=== PATIENT | female | born 1955 | race Caucasian/White ===

== ENCOUNTER 2023-09-04 06:33 | Observation (INO) ==
--- NOTE | 2023-08-08 12:21 | PAT Medication Instructions ---
Medication Instructions Date of Service August 08, 2023 Home Medications Medication Instructions Recorded amoxicillin 500 mg tablet 2,000 mg (4 x 500 mg) PO ONCE #4 06/29/20 tabs multivitamin 1 cap PO QAM amoxicillin 500 mg tablet 2,000 mg (4 x 500 mg) PO ONCE amlodipine 5 mg tablet 5 mg PO BID bupropion HCl 150 mg 24 hr tablet, extended release 150 mg PO BID naltrexone 50 mg tablet 25 mg PO BID naproxen 500 mg tablet 500 mg PO BID PRN Continue as directed amoxicillin 500 mg tablet 2,000 mg (4 x 500 mg) PO ONCE ASK your surgeon for instructions naproxen 500 mg tablet 500 mg PO BID PRN DO NOT take the morning of surgery multivitamin 1 cap PO QAM naltrexone 50 mg tablet 25 mg PO BID Take morning of surgery With a small sip of water, OTHERWISE NOTHING TO EAT OR DRINK AFTER MIDNIGHT: amlodipine 5 mg tablet 5 mg PO BID bupropion HCl 150 mg 24 hr tablet, extended release 150 mg PO BID Take evening before surgery amlodipine 5 mg tablet 5 mg PO BID bupropion HCl 150 mg 24 hr tablet, extended release 150 mg PO BID naltrexone 50 mg tablet 25 mg PO BID Other Notes If you have any questions please call us at [phone] or [phone] or [phone] or [phone]
--- NOTE | 2023-08-14 10:37 | Anesthesiology Consultation ---
Date of Service August 14, 2023 Assessment & Plan (1) Encounter for pre-operative examination: - Infectious disease screening: Per assessment on 08/14/23: No known infectious disease contacts or current infectious disease symptoms. No noted recent Covid positive test result. - Outpatient joint assessment: Pt currently scheduled for inpatient pathway. If surgeon requests review for outpatient joint pathway, patient is an acceptable candidate for outpatient joint program from anesthesia standpoint pending surgeon's office assessment that patient is motivated, has good support and completes [facility] preop requirements. 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 Prior to Right FABIÁN (done 05/2018 at [facility]) discussion by anesthesia with patient regarding SAB vs. GA. DOS preop platelet count at that time was 106 > Decision for SAB. Right FABIÁN (06/10/18): SAB at L3/4 at [facility]. No issues noted per post-op anesthesia progress note. S heme/onc aware of upcoming surgery and recommended preop CBCD with determination of anything further preop based on that finding. Preop CBCD done 08/14/23 with PAT preop labs (platelets 137 WNL)- results forwarded to S heme/onc. Awaiting [facility] heme/onc (Dr. Marte) preop recommendations ([facility] communication note started). Patient otherwise acceptable risk for surgery. Chart Review Chart Review: Patient seen in Pre Admission Testing Teaching & Discussion Pre-Anesthesia Teaching/Discussion Notes: Instructed NPO after midnight before surgery,except medications with 15 cc of water. Medication instructions provided according to the PAT guidelines. History Surgery Operation Date: 09/04/23 10:40 Proposed Procedures p Left Total Hip Arthroplasty - Gabe Bacon MD Height/Weight Height: 5 ft 8 in Weight: 87.4 kg Allergies Allergy/AdvReac Type Severity Reaction Status Date / Time Sulfa (Sulfonamide Allergy Mild Rash Verified 08/14/23 08:47 Antibiotics) codeine Allergy GI symptoms Verified 08/14/23 08:47 Medications Home Medications Medication Instructions Recorded Confirmed Last Taken multivitamin 1 cap PO QAM 05/22/18 08/08/23 06/09/18 06:00 amoxicillin 500 mg tablet 2,000 mg (4 x 500 mg) PO ONCE #4 06/29/20 08/08/23 Unknown tabs amlodipine 5 mg tablet 5 mg PO BID 08/08/23 08/08/23 Unknown bupropion HCl 150 mg 24 hr tablet, 150 mg PO BID 08/08/23 08/08/23 Unknown extended release naltrexone 50 mg tablet 25 mg PO BID 08/08/23 08/08/23 Unknown naproxen 500 mg tablet 500 mg PO BID PRN Pain 08/08/23 08/08/23 Unknown Additional Notes: Per patient, they were consideration initiation of Wegovy in near future. She was advised that Wegovy cannot be taken/needs to be stopped 7 days prior to surgery d/t anesthesia interaction/complications. She voiced understanding and states she will not be starting Wegovy until after upcoming surgery Past Medical History Medical History Hemidiaphragm paralysis right History of COVID-2020 Osteoarthritis Thrombocytopenia [facility]- suspected ITP, chronic thrombocytopenia since 2011 Exercise / Class Metabolic Activity II 4-5 Yardwork/Stairs/Walk up hill (one FS (no CP, no SOB)) Past Surgical History Surgical History History of arthroscopy left shoulder History of bilateral tubal ligation History of carpal tunnel release B/L History of section x2 History of colonoscopy History of tonsillectomy History of total hip arthroplasty Right FABIÁN (06/10/18): SAB at L3/4 at [facility] Hx of cervical spine surgery globus inserted > ROM WNL per patient Hx of thumb surgery right Nausea and vomiting after administration of anesthetic agent [place] teeth extracted Past Anesthesia History No Family Hx of Anesthesia Complications and Other (Dyspnea and emotional/"wants " with anesthesia emergence > resolved with "calming" techniques per patient, post-op elevated BP) History of PONV No Hx of Motion Sickness and History of PONV Social History Smoking Status: Never smoker Do You Dip or Chew Tobacco: No Hx Alcohol Use: Yes Alcohol type: hard liquor alcohol intake frequency: a few times a month Hx Substance Use: No substance use type: does not use Review of Systems Patient denies chest pain, shortness of breath, dyspnea on exertion, fever, chills, cough, wheezing, palpitations. Physical Exam Vital Signs BP 135/74 P 70 TEMP 98.3 SP02 96%RA RESP 18 Physical Full cervical extension range of motion. Full TMJ range of motion. TMD 3.5 finger breaths Mallampati Score 1 Dentition: intact, + crowns Lungs: clear throughout to auscultation Cardiac: regular rate and rhythm, no murmurs noted Spine: normal Carotid arteries: negative bruit Extremities: no LE edema Lab Results Anesthesia Preop Results Results Anesthesia Widget: WBC 5.83 K/ul (4.8-10.8) 08/14/23 Hgb 14.5 g/dl (12.0-16.0) 08/14/23 Hct 41.8 % (37.0-47.0) 08/14/23 Plt 137 K/uL (130-400) 08/14/23 Na 137 mmol/L (136-145) 08/14/23 K 4.1 mmol/L (3.5-5.1) 08/14/23 Cl 103 mmol/L (98-107) 08/14/23 CO2 29 mmol/L (21-32) 08/14/23 BUN 15 mg/dl (6-23) 08/14/23 Creat 0.62 mg/dl (0.6-1.2) 08/14/23 Glucose Level 82 mg/dl (70-99(Fasting)) 08/14/23 PT 10.1 Seconds (9.0-12.0) 08/14/23 PTT 27 Seconds (21-31) 08/14/23 INR 0.9 (0.9-1.1) 08/14/23 Blood Type A Positive 08/14/23 Antibody Screen NEGATIVE 08/14/23 Testing Electrocardiogram Date: 08/14/23 Findings: + NSR @ (70) Chest X-Ray Date: 08/14/23 Findings: + NAD Stress Test Date: 09/26/21 Type: exercise Stress echo was negative for inducible ischemia. Moderately high peak workload, 10 METS. 85% MPHR. Rest study: Mildly increased concentric LV wall thickness. LVEF 60 to 64%. No significant valvular disease.
--- NOTE | 2023-09-01 09:00 | History & Physical Report ---
Date of Service September 01, 2023 Assessment & Plan (1) Degenerative joint disease of left hip: 67-year-old female status post right hip replacement 5 years ago with advanced left hip arthritis. This has progressed significantly over the past several years. She is failed conservative measures. She like to have her left hip fixed. Plan: Dwayne to proceed to the operating room and do a left hip replacement. Will do the best we can we do to make her leg lengths equal. The risks Mente this procedure explained to the patient include but not limited to DVT, , infection, neurovascular injury, vascular injury, , infection, the need for further surgery, leg length inequality, fracture, dislocation, excetra. The patient understands and desires to proceed. We will do the best we can to make her leg length is equal as possible. She has quite a bit of offset and the other implant. As far as discharge plan she is planned to be discharged home. Can use [email or web address] home health program. She says she has a lot of help at home. Will use teds, SCDs, baby aspirin for DVT prophylaxis. (2) History of total right hip arthroplasty: History of Present Illness Chief Complaint: . Left hip pain. Primary Care Provider: Grover Woo DO . Patient is a 67-year-old female well-known to me from previous right hip replacement done back in May 2018. The right hip done well. Over the past several years she has developed increased pain discomfort in her left hip is gotten worse over the past year. Describes lateral pain groin pain thigh pain. She has developed stiffness in this hip as well. She has difficulty putting her shoes and socks on. She feels like over time the leg length discrepancy has developed as well. The more she is up and on it the more it hurts. She limps more as the day goes on. She is ready to have her hip fixed. She did have an injection to the hip back in September which did not help too much. Allergies Allergy/AdvReac Type Severity Reaction Status Date / Time Sulfa (Sulfonamide Allergy Mild Rash Verified 08/14/23 08:47 Antibiotics) codeine Allergy GI symptoms Verified 08/14/23 08:47 Home Medications Medication Instructions Recorded Confirmed Type multivitamin 1 cap PO QAM 05/22/18 08/08/23 History amoxicillin 500 mg tablet 2,000 mg (4 x 500 mg) PO ONCE #4 06/29/20 08/08/23 Rx tabs amlodipine 5 mg tablet 5 mg PO BID 08/08/23 08/08/23 History bupropion HCl 150 mg 24 hr tablet, 150 mg PO BID 08/08/23 08/08/23 History extended release naltrexone 50 mg tablet 25 mg PO BID 08/08/23 08/08/23 History naproxen 500 mg tablet 500 mg PO BID PRN Pain 08/08/23 08/08/23 History Past Med/Surg History Medical History History of COVID-19 2020 Hemidiaphragm paralysis right Osteoarthritis Thrombocytopenia [facility]- suspected ITP, chronic thrombocytopenia since 2011 Surgical History Nausea and vomiting after administration of anesthetic agent Hx of thumb surgery right History of carpal tunnel release B/L [place] teeth extracted Hx of cervical spine surgery globus inserted > ROM WNL per patient History of total hip arthroplasty Right FABIÁN (06/10/18): SAB at L3/4 at [facility] History of tonsillectomy History of colonoscopy History of arthroscopy left shoulder History of section x2 History of bilateral tubal ligation Social History Smoking Status: Never smoker Second Hand Exposure: No; Do You Dip or Chew Tobacco: No; Hx Alcohol Use: Yes Alcohol type: hard liquor Hx Substance Use: No Preferred Language: Guyanese Communication Ability: Effective Analytic Programmer Required: No Beliefs That Will Affect Care: None marital status: Current Living Situation: Spouse Feels Safe at Home: Yes Assistive Devices: Glasses Review of Systems All systems reviewed & are unremarkable except as noted in HPI & below. Physical Exam . Physical examination reveals a pleasant middle-age female. Looks in pretty good health. Examination left hip and leg reveal patient walks with a slight bit of a limp. She does seem to be a little bit short on the side about a centimeter compared to the other side. She does have hip pain and stiffness with any type of hip motion. Internal rotation to the neutral at best. This recreates her pain. Negative straight leg raise. No knee effusion. She is neurologically intact. Constitutional WD/WN, vitals as above Neck trachea midline, no thyromegaly Respiratory normal respiratory effort, lungs clear to auscultation Cardiovascular RRR, no murmur, no edema Gastrointestinal (Abdomen) normal bowel sounds, soft, nontender, no hepatosplenomegaly Results & Data Results & Data Laboratory Results . Diagnostic Findings . X-rays left hip were reviewed. Shows advanced left hip arthritis. She got complete loss of the joint space. Fairly concentric joint space narrowing. Got cystic changes and sclerotic changes in the subchondral bone. The right hip replacement looks to be in good position with no signs of problems. She does have quite a bit of offset. PG Care Time/CCT Total # of Minutes Spent Total Time Spent with Patient: Total time spent is greater than 50% in coordination of care (as documented) at patient's floor/unit and/or counseling patient: Coding Level of Care Code None Diagnoses Degenerative joint disease of left hip M16.12 History of total right hip arthroplasty Z96.641
[~2023-09-04 06:33] MED LIST: BUPIVACAINE 0.5 % 5 MG/1 ML PF 10ML VIAL ONE
--- NOTE | 2023-09-04 06:51 | History & Physical Bridge Note ---
Date of Service September 04, 2023 History & Physical Bridge Note I have examined the patient, reviewed the History & Physical and in the interval since the performance of the History & Physical I have noted the following changes of clinical significance: no changes noted
[2023-09-04] MEDS: dexAMETHasone**PF** 10 MG/ML VIAL IV SCH (07:19)
[2023-09-04] MEDS: METOCLOPRAMIDE HCL 10 MG TABLET PO SCH (07:20)
[2023-09-04] MEDS: FAMOTIDINE 20 MG TAB PO SCH (07:20)
[2023-09-04] MEDS: LR 500ML BOLUS, THEN 15ML/HR IV SCH (07:20)
[2023-09-04] MEDS: CeleBREX 200 MG CAP PO SCH (07:20)
[2023-09-04] MEDS: Scopolamine 1 MG TDSY TD SCH (07:20)
[2023-09-04] MEDS: LR 60ML/HR IV SCH (07:20)
[2023-09-04] MEDS: ACETAMINOPHEN 500 MG TAB PO SCH ×2 (07:20→14:18)
[2023-09-04] MEDS ORDERED: MIDAZOLAM HCL 1 MG/ML 2ML VIAL ONE (07:46)
[2023-09-04] MEDS ORDERED: ONDANSETRON INJ 2 MG/ML 2 ML VIAL IV PRN (07:48)
[2023-09-04] MEDS ORDERED: ATROPINE SULFATE 0.1 MG/ML 10ML SYR IV PRN (07:48)
[2023-09-04] MEDS ORDERED: ePHEDrine sulfate 50 MG/ML AMP IV PRN (07:48)
[2023-09-04] MEDS ORDERED: ONDANSETRON INJ 2 MG/ML 2 ML VIAL ONE (08:17)
[2023-09-04] MEDS ORDERED: PROPOFOL IV EMULSION 10 MG/ML 100 ML VIAL IV ONE (08:17)
[2023-09-04] MEDS: TRANEXAMIC ACID 1,000 MG **IV Pre-op IV SCH (08:35)
[2023-09-04] MEDS: ceFAZolin 2000MG 2,000 MG/15 ML SYR IV SCH ×2 (09:13→16:42)
[2023-09-04] MEDS: BUPIVACAINE/EPINEPHRINE 0.5% MPF 1:200,000 30 ML VIAL ONE (09:27)
[2023-09-04] MEDS ORDERED: DexMEDEtomidine HCL IV 100 MCG/ML VIAL IV ONE (09:28)
[2023-09-04] MEDS ORDERED: KETAMINE HCL 10MG/ML SYR ONE (09:28)
[2023-09-04] MEDS ORDERED: fentaNYL citrate PF 100 MCG/2 ML VIAL ONE (10:02)
[2023-09-04] MEDS ORDERED: HYDROmorphone INJ 2 MG/ML SYR/VIAL ONE (10:23)
--- NOTE | 2023-09-04 10:43 | Operative Report ---
PG Post Operative Report Pre & Post Diagnosis Operation Date: 09/04/23 08:50 Pre-Op Diagnosis: Degenerative joint disease of left hip. Post-Op Diagnosis: Degenerative joint disease of left hip. I identified the patient and participated in the time-out.: Yes Procedure Operation Date: 09/04/23 08:50 Actual Procedures p Left Total Hip Arthroplasty(Left) - Gabe Bacon MD Surgeon Gabe Bacon MD Underground [employer] Machinery Mechanic Nahun Sahu PA-C Estimated Blood Loss 200 Findings Consistent with Post-Op Diagnosis Operative findings reveal advanced left hip DJD. She had extensive grade 4 [id number] disease throughout the hip. She had a pretty significant anterior acetabular osteophyte. Moderate-sized joint effusion. Specimens Left femoral head sent for pathology. Anesthesia Type Spinal MAC Complications none Indications Patient is a 67-year-old female whose had a long history of hip problems. She had a previous right hip replacement in the past which is done well. Over the past several years she developed increased pain discomfort left hip. X-rays show advanced left hip arthritis. She failed conservative measures. She is elected proceed with total hip arthroplasty. Description of Procedure Operative implants consist of: 1 Biomet 52 mm G7 acetabular shell. 2. 6.5 cancellous acetabular screws 135 mm length and 1 to 20 mm length. 3. Pomeroy hole truss designer. 4. Highly cross-linked polyethylene liner with 52 mm outer diameter and 36 mm inner diameter. 5. DePuy Corail size 11 KLA femoral stem. 6. +5/36 mm ceramic articular ball. The patient was taken the operating, identified, placed on the operating table in the supine position. All contact areas were appropriately padded. IV antibiotics tried by anesthesia team. A spinal anesthetic had been implemented holding area. A Fernandez catheter was placed in sterile fashion. The patient then placed in the right lateral decubitus position. Axillary roll was placed. Stulberg hip positioner was used for positioning. The left hip and leg were then prepped and draped in usual sterile fashion. A posterolateral approach to the left hip was then performed to a curvilinear incision centered over the greater trochanter. Sharp dissection carried through subcutaneous tissue down to level the IT band gluteal fascia. The IT band gluteal fascia incised longitudinally in line with skin incision. The underlying greater bursa was excised. The piriformis and external rotators were then taken off the posterior aspect of the hip along with the posterior hip joint capsule as a single layer. Great care was taken throughout the procedure protect the sciatic nerve at all times. Hip was internally rotated and dislocated. Femoral neck osteotomy cut was made with a Final Cut about a centimeter above the lesser trochanter. Femoral head removed and sent for pathology. The femur was retracted anteriorly. Attention drawn the acetabulum. The acetabular labrum was excised. The pulmonary fat was excised. Sequential reaming the acetabular was then performed again with size 43 and progressing up to 51. I did ream a little with a 52 reamer. Her bone was fairly sclerotic. I then placed a 52 mm acetabular shell in about 40 degrees lateral opening and 20 degrees of anteversion. It was fixed with two 6.5 cancellous screws. An anterior osteophyte was removed. A trial liner was placed. Attention drawn the femur. The proximal femur was then with a CerRx cutter followed by canal finder. Her cancellous bone envelope was quite supportive and sturdy. I then broached beginning the size 8 and progressed up to an 11. Excellent fit 11. We trialed the hip and the +5 articular ball seem to recreate soft tissue tension appropriately. Hip was fully stable. This leg was a short preoperatively and I felt we equaled her leg lengths is much as possible. We elect to place his implants. All trial implants were removed. An apex hole truss designer was placed. Highly cross-linked polyethylene liner was placed. A size 11 KLA femoral stem was impacted in position. +5/36 mm ceramic articular ball was placed. Hip was located and once again found to be stable. Attention drawn toward closing. The wound was irrigated cosigns pulsatile lavage solution. I injected locally with 60 cc of half percent Marcaine with epinephrine. Posterior capsule and external rotators then repaired through drill holes in the posterior trochanter with #2 Tycron suture. The IT band gluteal fascia then closed in 1 PDS suture in a running fashion through the subcutaneous tissues then closed with 2 layers the deep layer #2 Vicryl suture and subcutaneous tissues with 2-0 Dexon suture in a buried interrupted fashion. Skin was cleaned and closed with skin dayami. I did place a Prevena VAC dressing as there is subcutaneous tissue envelope was fairly thick. The patient was then transferred to the recovery room in stable condition. The patient tolerated procedure well and there were no complications. Nahun Sahu, my physician delivery assistant, was present for the entire procedure. His assistance was essential and required for appropriate patient positioning, prepping and draping, surgical exposure, performing the technical details of the operation, placement the implants, closure of the wound, and placement of the sterile bandage. I attest to the content of the Intraoperative Record and any orders documented therein. Any exceptions are noted below.
[2023-09-04] MEDS: fentaNYL citrate PF 100 MCG/2 ML VIAL IV PRN (11:00)
--- NOTE | 2023-09-04 11:09 | XRay Report ---
XR hip 1V LT w pelvis HISTORY: 67 years-old Female IN PACU - Post Surgical left hip arthroplasty COMPARISON: 05/31/2023 TECHNIQUE: AP view the pelvis with crosstable lateral view of the left hip FINDINGS: Unchanged appearance of the right hip arthroplasty. The left hip arthroplasty demonstrates satisfacto ry alignment with lateral skin dayami, expected postoperative soft tissue swelling and deep tissue a ir. No acute fracture or unexpected opaque foreign body. IMPRESSION: Left hip arthroplasty with expected postoperative changes. ACT 112: Negative or not required by law. The above report was generated using voice recognition software. It may contain grammatical, syntax o r spelling errors. Electronically signed by: Trever Camilo M.D. 09/04/2023 11:07 AM
--- NOTE | 2023-09-04 11:29 | Anesthesiology Progress Note ---
Date of Service September 04, 2023 Anesthesia Post Procedure Vital Signs Vital Signs: Temp Pulse Pulse Resp BP Pulse Ox O2 Del Method 09/04/23 11:20 36.4 C L 70 16 136/76 94 Room Air 09/04/23 11:10 75 18 149/84 H 94 Room Air 09/04/23 11:00 78 17 154/78 H 97 Room Air 09/04/23 10:50 74 15 159/76 H 97 Room Air 09/04/23 10:40 77 10 L 143/77 H 94 Room Air 09/04/23 10:30 36.0 C L 82 15 152/83 H 94 Room Air 09/04/23 06:59 36.8 C 76 20 155/76 H 99 Room Air O2 Flow Rate 09/04/23 11:20 2 09/04/23 11:10 09/04/23 11:00 09/04/23 10:50 09/04/23 10:40 09/04/23 10:30 09/04/23 06:59 Pain Intensity Left Hip: Pain Intensity: 3 Transfer of Care Handoff Completed per policy Notes Mental Status: alert / awake / arousable Patient Amnestic to Procedure: Yes Nausea / Vomiting: adequately controlled Pain: adequately controlled Airway Patency, RR, SpO2: stable & adequate BP & HR: stable & adequate Hydration State: stable & adequate Neuraxial Anesthesia: was administered and sensory block is resolving Anesthetic Complications: no major complications apparent and Pt Satisfied with anesthetic care
[2023-09-04] MEDS ORDERED: NALOXONE HCL 0.4 MG/1 ML VIAL/CARP IV PRN (12:08)
[2023-09-04] MEDS ORDERED: bisacodyL 10 MG SUPP PR PRN (12:08)
[2023-09-04] MEDS ORDERED: HYDROmorphone INJ 0.5 MG/0.5 ML SYR IV PRN (12:08)
[2023-09-04] MEDS ORDERED: MAGNESIUM HYDROXIDE SUSP 30 ML UDC PO PRN (12:08)
[2023-09-04] MEDS ORDERED: ALUMINUM/MAGNESIUM SUSP 30 ML UDC PO PRN (12:08)
[2023-09-04] MEDS ORDERED: METOCLOPRAMIDE HCL INJ 5 MG/ML 2 ML VIAL IV PRN (12:08)
[2023-09-04] MEDS ORDERED: NON-FORMULARY MEDICATION (Amoxicillin 500 mg tablet) PO SCH (12:08)
[2023-09-04] MEDS: SODIUM CHLORIDE 0.9% 1,000 ML IV SCH (12:23)
[2023-09-04] MEDS: KETOROLAC TROMETHAMINE 15 MG/ML VIAL IV SCH (12:54)
[2023-09-04] MEDS: ONDANSETRON INJ 2 MG/ML 2 ML VIAL IV PRN (12:58)
[2023-09-04] MEDS ORDERED: ACETAMINOPHEN 500 MG TAB PO SCH (14:00)
[2023-09-04] MEDS: ASCORBIC ACID 500 MG TAB PO SCH (16:43)
[2023-09-04] MEDS: Scopolamine CHECK PATCH PLACEMENT SCH (16:43)
[2023-09-04] MEDS: TRANEXAMIC ACID / 0.7% NACL 1,000 MG/100 ML BAG IV SCH (17:51)
--- OUTSIDE RECORDS SUMMARY | 2023-09-04 18:11 | External Medical Summary | Summary of Care ---
Author Name Unknown Organization [facility] Address [address] [place] [address] Phone [phone] Care Team Providers Care Child Adolescent Care Name Role Phone Tanvir Diaz Maury DUTTON Primary Care Provider Reason for Visit * Reason Comments Weight Management Pt is taking naltrex one and bupropion Encounter Details Date Type Department Care Team (Late st Contact Info) Description 08/26/2023 8:20 AM EST Office Visit Nutrition & Weight Management, [facility] [address] [place] [address] Maria Antonia Hawthorne PA-C [address] [place] [id number] Overweight (BMI 25.0-29.9)* Allergies Active Allergy Reactions Criticality Noted Date Comments Codeine Nausea/vomiting 11/27/2012 Sulfa Antibiotics 06/22/2002 Hives with bactrim documented as of this encounter (statuses as of 08/26/2023) Medications Medication Sig Dispensed Refills Start Date End Date Status Multiple Vitamins/Womens Oral Tablet Take 1 Tablet by mouth in the morning. 0 Active Magnesium 100 MG Oral Tablet Take 1 Tablet by mouth in the morning. 0 Active Potassium 99 MG Oral Tablet Take 1 Tablet by mouth in the morning. 0 Active Calcium 200 MG Oral Tablet Take 200 mg by mouth in the morning. 0 Active Vitamin D3 10 MCG (400 UNIT) Oral Tablet Take 1 Tablet by mouth in the morning. 0 Active Fish Oil 1000 MG Oral Capsule Take 1 Capsule by mouth in the morning. 0 Active Turmeric 500 MG Oral Tablet Take by mouth. 0 Active Albuterol Sulfate HFA 108 (90 Base) MCG/ACT Inhalation Aerosol SolutionIndications:B ronchitis, complicated Inhale 2 Puffs by mouth every 6 hours as needed for Cough, Shortness of Breath or Wheezing. 8.5 g 2 11/13/2022 Active Biotin 10 MG Oral Capsule Take 1 Capsule by mouth in the morning and 1 Capsule at noon and 1 Capsule before bedtime. 0 Active Diclofenac Sodium 1 % External Gel (Voltaren)Indications :Primary osteoarthritis of both hands Apply to hands 4 times daily to hands as needed for pain 100 g 2 02/04/2023 Active buPROPion HCl ER (SR) 150 MG Oral Tablet Extended Release 12 Hour (Wellbutrin SR) Take 1 tab by mouth once a day for 1 week then take 1 tab twice a day (morning & late afternoon) 60 Tablet 4 04/22/2023 Active Naltrexone HCl 50 MG Oral Tablet (Revia) Take 1/2 tab by mouth once a day for 1 week then take 1/2 tab twice a day (morning & late afternoon) 30 Tablet 4 04/22/2023 Active amLODIPine Besylate 5 MG Oral Tablet (Norvasc)Indications: HTN, goal below 130/80 TAKE ONE TABLET BY MOUTH EVERY MORNING 90 Tablet 2 06/21/2023 Active Amoxicillin 500 MG Oral Capsule (Amoxil) Take 4 capsules one hour before dental treatment. 16 Capsule 1 07/29/2023 Active Zepbound 2.5 MG/0.5ML Subcutaneous Solution Auto-injector (Tirzepatide-Weight Management)Indication s:Overweight (BMI 25.0-29.9) Inject 2.5 mg under the skin once a week. 2 mL 0 08/26/2023 Active Zepbound 5 MG/0.5ML Subcutaneous Solution Auto-injector (Tirzepatide-Weight Management)Indication s:Overweight (BMI 25.0-29.9) Inject 5 mg under the skin once a week. Do not start before September 23, 2023. 2 mL 5 09/23/2023 Active documented as of this encounter (statuses as of 08/26/2023) Active Problems Problem Noted Date Diagnosed Date Thrombocytopenia 08/06/2022 HTN, goal below 130/80 08/06/2022 Atelectasis of right lung 08/10/2021 Acquired elevated hemidiaphragm 08/10/2021 Neck pain 08/10/2021 HURLEY (dyspnea on exertion) 08/05/2021 History of 2019 novel coronavirus disease (COVID -19) 08/05/2021 Digital mucinous cyst of finger of right hand Chronic bilateral low back pain without sciatica 01/31/2018 Idiopathic thrombocytopenic purpura 10/26/2014 Overview: Previously she had Positive Direct and Indirect Platelet Antibodies consistent with ITP, Immune Thrombocytopenia Purpura. As long as her Platelet Count stays above 20,000 and she has no abnormal bruising or bleeding, I would just continue to monitor her counts. I would recommend following her CBC every 2 months. She should be informed to avoid Aspirin or NSAIDs and to go to the ED at [facility] if she develops bleeding that doesn't stop with minor pressure. Osteoarthritis of spine with radiculopathy, cerv ical region 04/26/2003 documented as of this encounter (statuses as of 08/26/2023) Resolved Problems Problem Noted Date Diagnosed Date Resolved Date Carpal tunnel syndrome, bilateral 04/22/2020 01/03/2021 Bilateral hip pain 01/31/2018 Thrombocytopenia 12/25/2011 01/03/2021 Benign neoplasm of colon 05/18/2008 Overview: hyperplastic-flex sig in 3 months ADVANCE DIRECTIVE INFORMATION 07/19/2006 01/03/2021 Overview: No, Advance Directive brochure offered , patient declined. documented as of this encounter (statuses as of 08/26/2023) Immunizations Name Administration Dates Next Due COVID-19 mRNA, LNP-s, No Pre serve, 2-Dose Series (Moderna) 10/19/2020,09/21/2020 COVID-19, LNP-s, No Preserve , Marshal-sucrose, Ages 12+ (Pfizer) 12/05/2021 PPD 02/27/2017 Pneumococcal Conjugate Vacci ne, 20-valent ([id number]) 02/02/2022 Seasonal Influenza, PF, 6 M & above, IM , (FluLaval or Fluzone) 08/06/2022,03/24/2021,03/25/2020,03/23,05/09/2018 Seasonal Influenza, Quadriva lent Hd (Fluzone Hd) 04/18/2023 Seasonal Influenza, Quadriva lent, No Preserve, IM 03/11/2017,04/06/2016,03/31/2015 Seasonal Influenza, Split, I IV3, With Preserve, Inj 03/25/2014,06/08/2013 TDAP (age 10 and older)(Boostrix) 03/23/2019 TDAP (age 11 and older)(Adacel) 07/21/2008 Zoster Vaccine Recombinant (Shingrix) 11/23/2019,06/22/2019 08/24/2019 documented as of this encounter Social History Tobacco Use Types Packs/Day Years Used Date Smoking Tobacco: Never Smokeless Tobacco: Never Alcohol Use Standard Drinks/Week Comments Yes 0 (1 standard drink = 0.6 oz pur e alcohol) socially PHQ-2 Answer Date Recorded PHQ Adult Total Score 0 02/04/2023 Hunger Vital Sign Answer Date Recorded Within the past 12 months, y ou worried that your food would run out before you got the money to buy more. Never true 02/03/20 22 Within the past 12 months, t he food you bought just didn't last and you didn't have money to get more. Never true 02/02/2022 Sex and Gender Information Value Date Recorded Sex Assigned at Female 02/04/2023 8:05 AM EDT Gender Identity Female 02/04/2023 8:05 AM EDT Sexual Orientation Straight 02/04/2023 8: 05 AM EDT Job Start Date Occupation Industry Not on file Not on file Not on file documented as of this encounter Last Filed Vital Signs Vital Sign Reading Time Taken Comments Blood Pressure 124/68 08/26/2023 8:23 AM EST Pulse 84 08/26/2023 8:23 AM EST Temperature 36.3 C (97.3 F) 08/26/2023 8:23 AM ES T Respiratory Rate - - Oxygen Saturation - - Inhaled Oxygen Concentration - - Weight 85.5 kg (188 lb 8 oz) 08/26/2023 8:23 AM EST Height 168.9 cm (5' 6.5") 08/26/2023 8:23 AM EST Body Mass Index 29.97 08/26/2023 8:23 AM EST documented in this encounter Functional Status Functional Status Response Date of Assess ment Are you deaf or do you have serious difficulty h earing? No 12/27/2021 Are you blind or do you have serious difficulty seeing, even when wearing glasses? No 12/27/2021 Do you have serious difficul ty walking or climbing stairs? (5 years old or older) No 12/27/2021 Do you have difficulty dress ing or bathing? (5 years old or older) No 12/27/2021 Because of a physical, menta l, or emotional condition, do you have difficulty doing errands alone such as visiting a doctor s office or shopping? (15 years old or older) No 12/28/19 Cognitive Status Response Date of Assessm ent Because of a physical, menta l, or emotional condition, do you have serious difficulty concentrating, remembering, or making decisions? (5 years old or older) No 12/27/2021 documented as of this encounter Progress Notes * Maria Antonia Hawthorne PA-C - 08/26/2023 8:22 AM EST [facility] Note Nursing Notes: Nayeli Mead, MED ASSIST 08/26/23 0826 Sign at exiting of workspace Pt verified identity by last name and date. Chief Complaint Patient presents with Weight Management Pt is taking naltrexone and bupropion Kristine Vega presents in follow up to the comprehensive weight management clinic. The patient is a 67 year old female Wt Readings from Last 6 Encounters: 08/26/23 85.5 kg (188 lb 8 oz) 04/22/23 91.5 kg (201 lb 11.2 oz) 02/04/23 88.8 kg (195 lb 12.8 oz) 12/17/22 89.1 kg (196 lb 6.4 oz) 11/13/22 89 kg (196 lb 3.2 oz) 08/06/22 89.2 kg (196 lb 9.6 oz) Patient is receiving ongoing education regarding dietary and physical modifications for weight loss. - Initial clinic visit 04/22/23. Weight 201 lbs Height 66.5 Body mass index is 32.07 kg/m - Today's weight: 188 lbs - Total weight loss of -13 since initial weight in clinic - Patient's last follow up with GI/Nutrition clinic was on 04/22/23. - The patient's weight has -13 lbs since the last visit 08/26/23 -on wellbutrin/naltrexone -tolerating well -getting hip replacement on 09/04/23 Today's Visit 04/22/23 - Overall goal: be healthier - Wt hx: struggled more since kids were in high school and sports - Highest wt as adult: 201lbs - now - Lowest wt as adult: 145lbs - Barriers: lack of activity Patient Active Problem List Diagnosis Code Osteoarthritis of spine with radiculopathy, cervical region M47.22 Idiopathic thrombocytopenic purpura (HCC) D69.3 Chronic bilateral low back pain without sciatica M54.50, G89.29 Digital mucinous cyst of finger of right hand M67.441 HURLEY (dyspnea on exertion) R06.09 History of 2019 novel coronavirus disease (COVID-19) Z86.16 Atelectasis of right lung J98.11 Acquired elevated hemidiaphragm J98.6 Neck pain M54.2 Thrombocytopenia (HCC) D69.6 HTN, goal below 130/80 I10 Review of Systems: Review of Systems Musculoskeletal: Positive for arthralgias. All other systems reviewed and are negative. Current Medications: Current Outpatient Medications Medication Sig Dispense Refill Multiple Vitamins/Womens Oral Tablet Take 1 Tablet by mouth in the morning. Magnesium 100 MG Oral Tablet Take 1 Tablet by mouth in the morning. Potassium 99 MG Oral Tablet Take 1 Tablet by mouth in the morning. Calcium 200 MG Oral Tablet Take 200 mg by mouth in the morning. Vitamin D3 10 MCG (400 UNIT) Oral Tablet Take 1 Tablet by mouth in the morning. Fish Oil 1000 MG Oral Capsule Take 1 Capsule by mouth in the morning. Turmeric 500 MG Oral Tablet Take by mouth. Albuterol Sulfate HFA 108 (90 Base) MCG/ACT Inhalation Aerosol Solution Inhale 2 Puffs by mouth every 6 hours as needed for Cough, Shortness of Breath or Wheezing. 8.5 g 2 Biotin 10 MG Oral Capsule Take 1 Capsule by mouth in the morning and 1 Capsule at noon and 1 Capsule before bedtime. Diclofenac Sodium 1 % External Gel (Voltaren) Apply to hands 4 times daily to hands as needed for pain 100 g 2 buPROPion HCl ER (SR) 150 MG Oral Tablet Extended Release 12 Hour (Wellbutrin SR) Take 1 tab by mouth once a day for 1 week then take 1 tab twice a day (morning & late afternoon) 60 Tablet 4 Naltrexone HCl 50 MG Oral Tablet (Revia) Take 1/2 tab by mouth once a day for 1 week then take 1/2 tab twice a day (morning & late afternoon) 30 Tablet 4 amLODIPine Besylate 5 MG Oral Tablet (Norvasc) TAKE ONE TABLET BY MOUTH EVERY MORNING 90 Tablet 2 Amoxicillin 500 MG Oral Capsule (Amoxil) Take 4 capsules one hour before dental treatment. 16 Capsule 1 Zepbound 2.5 MG/0.5ML Subcutaneous Solution Auto-injector (Tirzepatide-Weight Management) Inject 2.5 mg under the skin once a week. 2 mL 0 [START ON 09/23/2023] Zepbound 5 MG/0.5ML Subcutaneous Solution Auto-injector (Tirzepatide-Weight Management) Inject 5 mg under the skin once a week. Do not start before September 23, 2023. 2 mL 5 No current facility-administered medications for this visit. Water intake: yes Prescribed diet: [id number] Calorie Controlled Current diet: Breakfast-- 8 oz milk, 1 low carb slice toast, 2 oz liverwurst Snack-- skips Lunch-- meat, veggie Snack-- skips Dinner-- meat, veggie Snack-- skips Drinks-- water, coffee with SF ceramer Meals Away from Home-- rare Food logs: No Type of exercise: ADL Weight loss Pharmacotherapy: yes Wellbutrin 150 mg mg Twice a day Naltrexone 25 mg mg Twice a day BP 124/68 | Pulse 84 | Temp 36.3 C (97.3 F) (Temporal Artery) | Ht 1.689 m (5' 6.5") | Wt 85.5 kg (188 lb 8 oz) | LMP 05/11/2008 | BMI 29.97 kg/m | BSA 2 m PHYSICAL EXAMINATION: General: Patient awake alert and oriented. Patient is well appearing and in no acute distress. Skin: No rashes. HEENT: Head is atraumatic, normocephalic. EOMs intact Abdomen: Obese Neuro: No focal deficits Psych: Appropriate mood and affect. Assessment and Plan: Abnormal weight gain / Body mass index is 29.97 kg/m. / Overweight: - Would like to proceed with medical management - Barriers are consistency. - Motivators are feeling better overall, avoiding/reducing co-morbid conditions. - The patient was encouraged to to avoid all fruit juices and regular sodas, consume at least 64 ounces of water per day, keep food logs and get weighed on a weekly basis. They were encouraged to increase physical activity as prescribed. - Handouts regarding nutrition and physical activity were provided, as appropriate. 1. Keep a food log. If you bite it, write it! Apps like [employer] or [email or web address] Calorie goal: 1500 2. Drink 48-64 ounces of non-caloric beverages per day. No fruit juices or regular soda Try crystal light, propel, zero calorie flavored water, plain water 3. Goal of 30 minutes of exercise 5 days per week (150 minutes per week--can be divided up however you would like) Aim for aerobic activity and muscle strengthening activities 4. Increase fruit and vegetable servings to 5-6 per day. 1/2 of your plate should be fruits and vegetables 5. Eat 100-200 calories within 1-2 hours of awakening, and every 4 - 6 hours while awake. (3 meals with snacks in between) Choose 100 calorie or less snacks, protein snacks 7. Weight yourself weekly and follow trend over time (day to day weight fluctuations can be discouraging) 8. Decrease starches like bread, pasta, cereal, potatoes and corn. Aim for of your plate Try substitutions like zoodles, lentil pasta, cauliflower mashed potatoes, whole grain foods, quinoa Limit junk/processed foods Chips, pretzels, cookies, cakes, sweets White bread/rolls/wraps/bagels, white rice 9. Increase protein to feel full longer (1/4 of your plate) Kristine was seen today for weight management. Diagnoses and all orders for this visit: Overweight (BMI 25.0-29.9) - Zepbound 2.5 MG/0.5ML Subcutaneous Solution Auto-injector (Tirzepatide-Weight Management); Inject2.5 mg under the skin once a week. - Zepbound 5 MG/0.5ML Subcutaneous Solution Auto-injector (Tirzepatide-Weight Management); Inject 5mg under the skin once a week. Do not start before September 23, 2023. -switch to Zepbound 2.5mg - then increase to 5mg and stay there until seen again ([facility] insurance) -consider phentermine, consider wellbutrin/naltrexone again -hold naltrexone now for upcoming surgery -do NOT start Zepbound until after sugery -increase protein to 90g per day around the time of surgery -get back to for resistance training Abnormal weight gain HTN, goal below 140/90 -continue current regimen The patient agreed to try the plan as discussed and return in 3-4 months. They were encouraged to call or send a patient portal message in the meantime with any questions or concerns prior to their next clinic visit. I spent a total of 20 minutes on the date of service in preparation, delivery, and documentation ofthe care provided to Kristine Vega excluding any time spent in the performance of separately billed services. This included but was no limited to providing counseling about the benefits of weight loss, about their nutritional status, detailed explanations about calorie count, types of nutrients to choose, and composition of the meals. Motivational interview provided in order to prepare the patient to achieve future goals. Maria Antonia Hawthorne PA-C documented in this encounter Nursing Notes * Nayeli Mead MED ASSIST - 08/26/2023 8:26 AM EST Pt verified identity by last name and date. Chief Complaint Patient presents with Weight Management Pt is taking naltrexone and bupropion documented in this encounter Plan of Treatment Upcoming Encounters Date Type Department Care Team (Late st Contact Info) Description 10/30/2023 8:00 AM EDT Office Visit [facility] [address] [place] [phone] Tanvir Diaz, [address] [place] [address] 12/18/2023 2:00 PM EDT Office Visit Hematology/Oncology [facility] [address] [place] [id number] Samina Marte MD [address] [place] [address] 02/17/2024 1:00 PM EDT Office Visit Nutrition & Weight Management, [facility] [address] [place] [address] Maria Antonia Hawthorne PA-C [address] [place] [phone] 03/30/2024 8:00 AM EDT Imaging Radiology [facility] [address] [place] [address] Scheduled Procedures Name Priority Associated Diagnoses Date/Ti me COLONOSCOPY FLEXIBLE PROXIMAL DIAGNOSTIC Recall History of colon polyps Health Maintenance Due Date Last Done Comments HIV Screening 1970 COVID-19 Vaccine ( season) 2023 12/05/2021, 10/19/2020, 09/21/2020 GFR 02/01/2024 01/31/2023, 11/23, 06/22/2022, Additional history exists Depression Screening 02/05/2024 02/04/2023 Mammogram 03/27/2024 03/27/2023, 02/22, 03/01/2021, Additional history exists COLONOSCOPY-EVERY 5 YRS AGES 18-100 03/31/2024 03/31/2019, 03/31/2019, 11/27/2013, Additional history exists Lipid Panel 04/28/2025 04/28/2020, 05/24, 07/29/2015, Additional history exists Diabetes Screening 01/31/2026 01/31/2023, 0 12/13/2022, 06/22/2022, Additional history exists Albumin/Creatinine Ratio 02/04/2026 02/04/2023 DXA Scan 02/06/2028 02/05/2023 DTaP,Tdap,and Td Vaccines (3 - Td or Tdap) 03/23/2029 03/23/2019, 07/21/2008 Pap Smear Discontinued 12/16/2018, 11/22, 11/27/2012, Additional history exists Zoster Vaccines Completed 11/23/2019, 06/22/2019 Pneumococcal Vaccine: 65+ Years Completed 02/02/2022 Influenza Vaccine (FLU shot) Completed 04/18/2023, 08/06/2022, 03/24/2021, Additional history exists GARDASIL-HPV IMMUNIZATION SERIES Aged Out No longer eligible based on patient's age to complete this topic Hepatitis B Aged Out No longer eligi ble based on patient's age to complete this topic MENINGOCOCCAL (MENACTRA/MENVEO) Aged Out No longer eligible based on patient's age to complete this topic documented as of this encounter Medical Devices Implanted Type Area Door Puller Device Identifier Shelf Expiration Date Model / Serial / Lot Implant Graft Bone Ifact 2.5cc - [id number] Implanted:Qty: 1 on 12/27/2021 by Nima Maguire MD at OR [facility] N/A: Neck [id number] 06/23/2024 / / [id number] [employer] [id number] - [id number] Implanted:Qty: 2 on 12/27/2021 by Nima Maguire MD at OR [facility] N/A: Neck [facility] [id number] / / Description:no expiration da te given Spacer Wilkin Ti 12x14 7dg 7mm - [id number] Implanted:Qty: 1 on 12/27/2021 by Nima Maguire MD at OR [facility] N/A: Neck [facility] [id number] / / Description:no expiration da te or lot # given documented as of this encounter Visit Diagnoses Diagnosis Overweight (BMI 25.0-29.9)- Primary Overweight documented in this encounter Advance Directives Latest Code Status on File Code Status Date Activated Date Inactivated Comments Full Code 12/27/2021 9:22 AM 12/28/2021 6:02 PM This or rick reflects the patients wishes and were consensually agreed upon. Question Answer Comments Discussion of Advance Directives occurred with: Not Discussed Code Status History Code Status Date Activated Date Inactivated Comments Full Code 12/27/2021 6:25 AM 12/27/2021 6:38 AM This or rick reflects the patients wishes and were consensually agreed upon. Question Answer Comments Discussion of Advance Directives occurred with: Not Discussed Care Teams Child Adolescent Care Relationship Specialty Start Date End Date Tanvir Diaz DO [address] [place] [id number] PCP - General Family Medicine 06/06/23 documented as of this encounter
[2023-09-04] MEDS ORDERED: NALTREXONE HCL 50 MG TAB PO SCH (21:00)
[2023-09-04] MEDS ORDERED: SENNA 8.6 MG TAB PO SCH (21:00)
[2023-09-04] MEDS: traMADol HCL 50 MG TABLET PO PRN (21:12)
[2023-09-04] MEDS: DOCUSATE SODIUM 100 MG CAP PO SCH (21:16)
[2023-09-04] MEDS: SENNA 8.6 MG TAB PO SCH (21:18)
[2023-09-04] MEDS: ASPIRIN 81 MG ECTAB PO SCH (21:18)
[2023-09-04] MEDS: amLODIPine BESYLATE 5 MG TAB PO SCH (21:20)
[2023-09-04] MEDS: buPROPion XL 150 MG TABCR PO SCH (21:21)
[2023-09-05 06:28] LABS: BUN Creatinine Ratio 33.3 (10-20); Calcium 8.8 mg/dl (8.6-10.3); Creatinine Clr Calc Pharmacy 102.6 ml/min; Est GFR (African American) 109.1 ml/min; Est GFR (Non-African American) 94.1 ml/min; Potassium 3.9 mmol/L (3.5-5.1)
[2023-09-05 06:29] LABS: Basophils # (auto) 0.03 K/uL (0.00-0.20); Basophils % (auto) 0.3 %; Eosinophils # (auto) 0.06 K/uL (0.00-0.50); Eosinophils % (auto) 0.6 %; Hematocrit (blood only) 33.8 % (37.0-47.0); Hemoglobin 11.8 g/dl (12.0-16.0); Immature Granulocytes # (auto) 0.03 K/uL (0.01-0.20); Immature Granulocytes % (auto) 0.3 %; Lymphocytes # (auto) 2.49 K/uL (1.20-3.40); Lymphocytes % (auto) 26.4 %; Mean Corpuscular Hemoglobin 31.3 pg (25.0-34.0); Mean Corpuscular Hgb Conc 34.9 g/dL (32.0-36.0); Mean Corpuscular Volume 89.7 fL (80.0-100.0); Mean Platelet Volume 11.2 fL (9.4-12.4); Monocytes # (auto) 0.87 K/uL (0.11-0.59); Monocytes % (auto) 9.2 %; Neutrophils # (auto) 5.95 K/uL (1.40-6.50); Neutrophils % (auto) 63.2 %; Platelet Count 120 K/uL (130-400); RDW Coefficient of Variation 13.9 % (11.5-14.5); RDW Standard Deviation 45.3 fL (36.4-46.3); Red Blood Count 3.77 M/uL (4.20-5.40); White Blood Count 9.43 K/ul (4.8-10.8)
[2023-09-05] MEDS: MULTIVITAMIN TAB PO SCH (08:39)
[2023-09-05] MEDS: dexAMETHasone 10 MG in SYRINGE 0 ML IV SCH (08:40)
[2023-09-05] MEDS ORDERED: MULTIVITAMIN TAB PO SCH (09:00)
--- NOTE | 2023-09-05 10:52 | Orthopedic Progress Note ---
Date of Service September 05, 2023 Assessment & Plan (1) Status post left hip replacement: Overall, she is doing quite well today with good pain control of the left hip. She will work with physical therapy later this morning to work on ambulation and range of motion exercises. She is on aspirin for DVT prophylaxis. She can be discharged home later this morning pending physical therapy evaluation. She will follow-up with Dr. Bacon in 2 weeks for postoperative management. Subjective . Kristine was seen and evaluated this morning resting comfortably in no apparent distress. She notes that her pain is well-controlled to the left hip. She has been up and out of bed with no significant issues. She has yet to work with physical therapy this morning. She denies any other concerns today. Review of Systems All systems reviewed & are unremarkable except as noted in HPI & below. Physical Exam . On physical examination of the left hip, her dressings are clean, dry, and intact. Her leg is out in full extension. She has active plantarflexion dorsiflexion of the left ankle. +2 DP and PT pulses. Less than 2-second capillary refill. Normal sensation. Neurovascular intact. Results & Data Results & Data Laboratory Results . Diagnostic Findings . Postoperative x-rays the left hip show prosthesis to be in anatomical alignment with no signs of fracture complication or loosening. PG Care Time/CCT Total # of Minutes Spent Total Time Spent with Patient: Total time spent is greater than 50% in coordination of care (as documented) at patient's floor/unit and/or counseling patient: Coding Level of Care Code 42796 Post Operative Follow-Up Diagnoses Status post left hip replacement Z96.642
--- NOTE | 2023-09-05 10:54 | Discharge Summary ---
Date of Service September 05, 2023 Admission HPI (Per Admitting) . Patient is a 67-year-old female well-known to me from previous right hip replacement done back in May 2018. The right hip done well. Over the past several years she has developed increased pain discomfort in her left hip is gotten worse over the past year. Describes lateral pain groin pain thigh pain. She has developed stiffness in this hip as well. She has difficulty putting her shoes and socks on. She feels like over time the leg length discrepancy has developed as well. The more she is up and on it the more it hurts. She limps more as the day goes on. She is ready to have her hip fixed. She did have an injection to the hip back in September which did not help too much. Admission Exam (Per Admitting) . Physical examination reveals a pleasant middle-age female. Looks in pretty good health. Examination left hip and leg reveal patient walks with a slight bit of a limp. She does seem to be a little bit short on the side about a centimeter compared to the other side. She does have hip pain and stiffness with any type of hip motion. Internal rotation to the neutral at best. This recreates her pain. Negative straight leg raise. No knee effusion. She is neurologically intact. Principal Diagnosis Same as "Discharge Diagnosis" noted below under Discharge Instructions. Discharge Exam . On physical examination of the left hip, her dressings are clean, dry, and intact. Her leg is out in full extension. She has active plantarflexion dorsiflexion of the left ankle. +2 DP and PT pulses. Less than 2-second capillary refill. Normal sensation. Neurovascular intact. Discharge Data Procedures Performed Operation Date: 09/04/23 08:50 Actual Procedures p Left Total Hip Arthroplasty(Left) - Gabe Bacon MD Hospital Course (1) Status post left hip replacement: On September 04, 2023 Kristine arrived at [facility] and underwent a left total hip arthroplasty performed by Dr. Bacon with no complications. She had a spinal anesthetic. Postoperatively, she was started on aspirin for DVT prophylaxis and transferred to the general orthopedic floor in stable condition. Her hospital course was uneventful. On postoperative day #1, her vital signs were stable and her pain was well-controlled. She participated well with physical therapy working on ambulation and range of motion exercises. She was then discharged home in stable condition. She will follow-up with Dr. Bacon in 2 weeks for postoperative management. PG Care Time/CCT Total # of Minutes Spent Total Time Spent with Patient: Total time spent is greater than 50% in coordination of care (as documented) at patient's floor/unit and/or counseling patient: Discharge Plan Discharge Items Patient Disposition: Home - Home Health Services Reason For Visit: DJD hip left Discharge Diagnosis: Left Hip Replacement Activity: Per Instructions section Activity Comment: Obey /FOllow hip precautions at all times. Weightbearing: Full weightbearing Weightbearing Comment: Weightbear as tolerated obeying hip precautions at all times. Non-emergency contact: Surgeon Call non-emergency contact if: you have any medication questions Follow-up/Referrals: Grover Woo DO [Primary Care Provider] - Diet: Regular Addtl Attending Provider Instructions: ACTIVITY RECOMMENDATIONS: Physical Therapy: * Aggressive physical therapy is not usually needed. You will learn to take care of yourself safely and walk. * Follow the "Hip Precautions Instructions." * In some cases, the social scientist at the hospital will arrange to have a therapist come to your house for the first couple of weeks to help you learn these skills. * You need to practice on your own or with the help of a family member as needed. * When you learn these skills, most of the therapy can be done on your own. Home Exercise: * You were shown a series of exercises in the hospital. Do these exercises three to four times each day including the exercises you were shown in physical therapy. Walking: * Get up and walk several times each day. For the first four weeks, try not to stand or walk for more than one hour at a time. If you do stand or walk for more than one hour, you will not hurt anything, but your leg will likely swell. * As you feel comfortable, you may change from the walker or crutches to a cane and then to independent walking. MEDICATIONS: New Medicine: * You will likely be taking one or more of these medicines: 1. Tramadol - Take, as directed, when you need it, every six hours to control your pain. 2. Aspirin - Thins your blood to lessen the chance of forming a blood clot. * The most common side effects of pain medicine and iron are nausea and constipation. If nausea or constipation is too much of a problem or if you have any questions about your new medicines or doses, call [facility] at . We will try to help you manage these issues. "VERY IMPORTANT TO READ AND REVIEW" Pain: * The immediate post-operative period after hip replacement surgery is often quite painful. * You are given a prescription for pain medicine. You should take it, as directed, when you need it, especially before physical therapy and before going to bed. Pain that interferes with sleep is very common and can last several months. * You will likely need pain medicine for the first two to four weeks. It will not stop all of the pain. The pain will lessen and as you feel better, you may change to milder pain medicine such as Tylenol. * The most common side effects of pain medicine are nausea and constipation, so don't take more than you need. SPECIAL CARE INSTRUCTIONS: TEDs/Elastic Stockings: * The white elastic stockings help limit swelling and prevent blood clots from forming in your legs. The more you wear them, the more they work. * Wear them for six weeks. Incision Site Care: * Remove dressing postoperative day 2 and then shower. Keep direct shower pressure off the incision site. * After showering, cover dayami with dry gauze and change daily or more frequently if the dressing is getting saturated with drainage. * May completely stop using bandage if wound is dry and no drainage * Alum Bridge are removed between 2 and 3 weeks post-op. If your follow-up appointment is made before 2 weeks, please have your appointment re- scheduled. It is too early to remove the dayami. Prevention of Infection: * Take antibiotics one hour before any dental cleaning, dental work, urological procedure, gastrointestinal procedure or any invasive surgery in order to prevent your new joint from getting infected. * You may get the antibiotics from the doctor performing the procedure or you may call our office at before and we will call in a prescription to the pharmacy of your choice. Things to Watch For: * Drainage from the incision site that occurs more than one week after your surgery. * Severely increased leg pain or swelling. * Increased redness at the incision site. * Fever above 102 degrees Fahrenheit. * Unusual chest pain or shortness of breath. * Unusual pain or burning with urination. Call [facility] at with any of the above problems or if you have any questions about your medicines or recovery. FOLLOW UP VISIT: Make an appointment to see your doctor for approximately two weeks after surgery for a progress check and staple removal by calling the office at . Pending Studies at Discharge: No Stand-Alone Forms: [facility], Pain - Opioid Pain Management, Smoking Cessation Medications and DC Order Prescriptions: Continued amoxicillin 500 mg tablet 2,000 mg PO ONCE Qty: 4 2RF Rx Instructions: Take 4 tabs 1 hour prior to dental work tramadol 50 mg tablet 50 - 100 mg PO Q8H PRN (Reason: pain) Qty: 40 0RF Rx Instructions: Take as needed for pain ondansetron 4 mg tablet,disintegrating 4 mg PO Q8 PRN (Reason: nausea) Qty: 20 1RF Rx Instructions: Take as needed for nausea ketorolac 10 mg tablet 10 mg PO Q6 5 Days Qty: 20 0RF Rx Instructions: Take 4 times per day with food for 5 days to lessen pain and swelling. sennosides [Senokot] 8.6 mg tablet 8.6 mg PO BID 14 Days Qty: 28 0RF Rx Instructions: Take two times a day to prevent/treat constipation acetaminophen [Tylenol Extra Strength] 500 mg tablet 1,000 mg PO TID 30 Days Qty: 180 0RF Rx Instructions: Take 3 times per day to lessen pain. aspirin [Christel Low Dose Aspirin] 81 mg tablet,delayed release (DR/EC) 81 mg PO BID 45 Days Qty: 90 0RF Rx Instructions: Take to prevent blood clots (DME) 3-in-1 Commode Misc See Rx Instructions .MEDSUPPLY Qty: 1 0RF Rx Instructions: As directed multivitamin Capsule 1 cap PO QAM amlodipine 5 mg Tablet 5 mg PO BID bupropion HCl 150 mg Tablet Extended Release 24 Hr 150 mg PO BID Discontinued naproxen 500 mg Tablet 500 mg PO BID PRN (Reason: Pain) No Action (DME) Wheeled Walker Misc See Rx Instructions .MEDSUPPLY Qty: 1 0RF Rx Instructions: As directed Krames/Other Patient Handouts: Hip Precautions, Hip Safety: Sleeping Positions, Hip Replace Sitting Safely, Hip Safety: Using the Toilet, After Hip Replacement: Home Safety Admission Data Admit Date/Time: 09/04/23 10:35 Attending Provider: Gabe Bacon Admit Provider: Gabe Bacon Primary Care Provider: Grover Woo [facility] Other Interventions: Discharge Summary Assessment (RN) Last Done: 09/05/23 07:28
== END 2023-09-05 10:53 | disposition home health service (06) ==
LOC: 3E 06:33 → ASU 06:33